=== PATIENT | female | born 1965 | race Two or more races ===

== ENCOUNTER 2018-07-12 09:26 | Emergency (ER) | payer MEDICAID, OTHER ==
[~2018-07-12] VITALS: Ht 157.5 cm; Wt 70.3 kg
[2018-07-12 11:45] VITALS: BP 135/93
== END 2018-07-12 12:23 | disposition home or self-care (01) ==
LOC: ER 09:27
DX: F41.9 Anxiety disorder, unspecified (principal); R51 Headache; M54.9 Dorsalgia, unspecified; G89.29 Other chronic pain; R11.0 Nausea; Z86.73 Personal history of transient ischemic attack (TIA), and cerebral infarction without residual deficits
CPT/HCPCS: 70450; 93005

== ENCOUNTER 2023-08-22 10:32 | Emergency (ER) | payer MEDICAID ==
[~2023-08-22] VITALS: Ht 157.5 cm; Wt 73.1 kg
[2023-08-22 11:58] LABS: Basophils # (auto) 0 10 ^3/uL (0-0.2); Basophils % (auto) 0.6 % (0.0-2.0); Eosinophils # (auto) 0.1 10 ^3/uL (0-0.8); Eosinophils % (auto) 2.5 % (0.0-7.0); Hemoglobin 13.1 g/dL (12.2-16.2); Lymphocytes # (auto) 1.2 10 ^3/uL (0.4-5.4); Lymphocytes % (auto) 22.2 % (10.0-50.0); Mean Corpuscular Hemoglobin 32.2 pg (28.0-32.0); Mean Corpuscular Hgb Conc. 33.7 g/dL (32.0-36.0); Mean Corpuscular Volume 95.7 fL (80.0-100.0); Monocytes # (auto) 0.4 10 ^3/uL (0-1.3); Monocytes % (auto) 8.1 % (0.0-12.0); Neutrophils # (auto) 3.7 10 ^3/uL (1.6-8.6); Neutrophils % (auto) 66.6 % (37.0-80.0); Red Blood Cells 4.08 10^6/uL (4.0-5.20); Red Cell Distribution Width 13.3 % (11.8-14.3); White Blood Cell 5.5 10^3/uL (4.4-10.8)
[2023-08-22 12:36] LABS: Rapid Influenza A Negative (Negative); Rapid Influenza B Negative (Negative)
[2023-08-22 12:36] LABS: Chloride 105 mmol/L (98-107); Potassium 4.2 mmol/L (3.5-5.1); Sodium 140 mmol/L (136-145)
[2023-08-22 12:37] LABS: COVID19 ANTIGEN SOFIA FIA POSITIVE (NEGATIVE)
[2023-08-22 12:38] LABS: Anion Gap 8 (5-15); Carbon Dioxide 27 mmol/L (20-30)
[2023-08-22 12:39] LABS: Calcium 9.2 mg/dL (8.7-10.4)
[2023-08-22 12:44] LABS: Alkaline Phosphatase 123 U/L (46-116); BUN/Creatinine Ratio 20.6 (10.0-20.0); Blood Urea Nitrogen 13 mg/dL (9-23); Glucose 125 mg/dL (74-106)
[2023-08-22 12:45] LABS: Alanine Aminotransferase 37 U/L (7-40); Aspartate Aminotransferase 21 U/L (13-40)
[2023-08-22 12:46] LABS: Albumin 4.6 g/dL (3.2-4.8); Bilirubin, Total 0.4 mg/dL (0.2-1.0); Total Protein 6.8 g/dL (5.7-8.2)
[2023-08-22 13:02] LABS: INR 0.99 (0.9-1.15); Partial Thromboplastin Time 27.1 SEC (24.5-34.5); Prothrombin Time 10.6 sec (9.3-11.8)
[2023-08-22] MEDS ORDERED: ZINC220C10 PO (13:43)
[2023-08-22] MEDS ORDERED: AZIT500T PO (13:43)
[2023-08-22] MEDS ORDERED: CHOL20007 PO (13:43)
[2023-08-22] MEDS ORDERED: DEXT1SYP9 PO (13:43)
[2023-08-22] MEDS ORDERED: [UNRECOGNIZED DRUG - CODE] PO (13:43)
[2023-08-22 13:56] VITALS: BP 130/51; PULSE 71; RESP 18; TEMP 98.3; O2SAT 97
== END 2023-08-22 13:58 | disposition home or self-care (01) ==
LOC: ER 10:32
DX: U07.1 COVID-19 (principal); J45.909 Unspecified asthma, uncomplicated; I10 Essential (primary) hypertension; E78.5 Hyperlipidemia, unspecified; R07.89 Other chest pain
CPT/HCPCS: 36415; 71045; 80053; 83735; 83880; 84484; 85025; 85610; 85730; 87426; 87804; 93005